=== PATIENT | female | born 1950 | race Caucasian/White ===

== ENCOUNTER → 2017-05-05 | Outpatient (CLI) | payer OTHER ==
[~2017-05-05] MED LIST: ASPIRIN81 M1 PO; AUGMENTIN PO; B-12250 MCG PO; CIPRO PO; FISH OIL 1,001000 MG PO; FISH OIL PO; FISH OIL SOFTGE1 CA1 PO; FLAGYL PO; GLUCOPHAGE XR750 MG PO; LAXATIVE OF CHOICE; LEVAQUIN750 MG PO; LISINOPRIL PO; LORTAB 7.5-5001 TAB PO; METRONIDAZOLE PO; MEVACOR PO; NEOMYCIN; VICODIN 5/1 TAB 5/50 PO; VICODIN ES 7.51 EACH PO; VICODIN PO
--- NOTE | ~2017-05-05 | MY11 ---
[facility] A Service of [facility] RADIOLOGY TEXT RESULTS PATIENT: ZAMZAM LEWIS LOCATION: [facility] : 52 UNIT #: [id number] AGE: [address]: Priscilla Gibbons MD SEX: F ORDER DR: [id number] [address] [address] [id number] MR#: [id number] Acc #: [id number] NAME: ZAMZAM LEWIS : 1950 SEX: F STUDY DATE/TIME: 05/05/2017 13:58 UNIT: [facility] ROOM: STUDY DESCRIPTION: MY Mammogram Screening Dig Arturo Attending Physician: Priscilla Gibbons M.D. Referring Physician: Priscilla Gibbons M.D. Ordering Physician: Priscilla Gibbons M.D. Primary Care Physician: Priscilla Gibbons M.D. MEDICAL IMAGING REPORT This report is preliminary unless electronic signature is present. EXAM Digital screening mammogram, 05/05/2017, [facility]. HISTORY 67-year-old woman positive family history, maternal grandmother postmenopausal. Annual screen. COMPARISON Mammograms date to 12/11/2005 with most recent 03/22/2016. FINDINGS Digital imaging of each breast was completed utilizing a two-view examination of each breast in craniocaudal and mediolateral-oblique projections. Review and interpretation of digital mammograms include a second review in conjunction with FDA-approved CAD device. There is a normal parenchymal presentation bilaterally consistent with the patient's age. There are no breast masses imaged and no parenchymal asymmetry is visualized. There are no suspicious microcalcifications and I see no focal architectural disturbance. IMPRESSION Negative screening digital mammogram. One-year followup recommended. Patients over the age of 40 are entered into a reminder system with target due date for the next mammogram. A result letter will also be sent to the patient. BIRADS: 1 Negative ADDENDUM Breast parenchyma is fatty replaced. [facility] A Service of [facility] RADIOLOGY TEXT RESULTS PATIENT: ZAMZAM LEWIS LOCATION: [facility] : 52 UNIT #: [id number] AGE: [address]: Priscilla Gibbons MD SEX: F ORDER DR: Dictated by... Ricardo Guerrero M.D. THIS IS AN ELECTRONICALLY VERIFIED REPORT Ricardo Guerrero M.D. at 05/06/2017 8:08 AM AUDREY/jaleesa TD: 05/05/2017 20:15 JOB #: [id number] MEDICAL IMAGING REPORT Page 1 of 1
== END | disposition home or self-care (01) ==
LOC: SMAM 13:06
DX: Z12.31 Encounter for screening mammogram for malignant neoplasm of breast (principal); Z80.3 Family history of malignant neoplasm of breast
CPT/HCPCS: G0202